=== PATIENT | male | born 1995 | race Caucasian/White ===

== ENCOUNTER 2021-07-16 18:39 | Emergency (ER) | payer BC, SELFPAY ==
[2021-07-16] MEDS ORDERED: Ketorolac Tromethamine 30 MG/ML VIAL ONE (19:27)
[2021-07-16] MEDS ORDERED: Acetaminophen/Codeine 30-300mg Tablet ONE (19:27)
== END 2021-07-16 20:09 | disposition home or self-care (01) ==
LOC: ERS 18:39
DX: K08.89 Other specified disorders of teeth and supporting structures (principal); F17.210 Nicotine dependence, cigarettes, uncomplicated
CPT/HCPCS: 96372; 99282; J1885